=== PATIENT | male | born 1940 ===

== ENCOUNTER 2017-07-18 00:18 | Outpatient (CLI) | payer MEDICARE | END 2017-07-18 23:59 | disposition home or self-care (01) | LOC: DIABETIC 00:18 | PROVIDERS: ATTEND Family Medicine | DX: E11.65 Type 2 diabetes mellitus with hyperglycemia (principal); E11.40 Type 2 diabetes mellitus with diabetic neuropathy, unspecified; I10 Essential (primary) hypertension; E78.5 Hyperlipidemia, unspecified; I67.9 Cerebrovascular disease, unspecified | CPT/HCPCS: G0108 ==

== ENCOUNTER 2017-10-15 04:03 | Outpatient (CLI) | payer MEDICARE | END 2017-10-15 23:59 | disposition home or self-care (01) | LOC: DIABETIC 04:03 | PROVIDERS: ATTEND Family Medicine | DX: E11.40 Type 2 diabetes mellitus with diabetic neuropathy, unspecified (principal); I10 Essential (primary) hypertension; E78.5 Hyperlipidemia, unspecified; E11.65 Type 2 diabetes mellitus with hyperglycemia; I67.9 Cerebrovascular disease, unspecified | CPT/HCPCS: G0108 ==

== ENCOUNTER 2018-01-23 00:50 | Outpatient (CLI) | payer MEDICARE | END 2018-01-23 23:59 | disposition home or self-care (01) | LOC: DIABETIC 00:50 | PROVIDERS: ATTEND Family Medicine | DX: E11.65 Type 2 diabetes mellitus with hyperglycemia (principal); E11.40 Type 2 diabetes mellitus with diabetic neuropathy, unspecified; I67.9 Cerebrovascular disease, unspecified; E78.5 Hyperlipidemia, unspecified; I10 Essential (primary) hypertension; Z79.4 Long term (current) use of insulin; Z79.84 Long term (current) use of oral hypoglycemic drugs | CPT/HCPCS: G0108 ==

== ENCOUNTER 2018-07-22 00:34 | Outpatient (CLI) | payer MEDICARE | END 2018-07-22 23:59 | disposition home or self-care (01) | LOC: DIABETIC 00:34 | PROVIDERS: ATTEND Family Medicine | DX: E11.9 Type 2 diabetes mellitus without complications (principal); Z79.4 Long term (current) use of insulin; Z79.84 Long term (current) use of oral hypoglycemic drugs | CPT/HCPCS: G0108 ==

== ENCOUNTER 2019-02-05 01:15 | Outpatient (CLI) | payer MEDICARE | END 2019-02-05 23:59 | disposition home or self-care (01) | LOC: DIABETIC 01:15 | PROVIDERS: ATTEND Family Medicine | DX: E11.9 Type 2 diabetes mellitus without complications (principal); Z79.4 Long term (current) use of insulin; Z79.84 Long term (current) use of oral hypoglycemic drugs; Z79.899 Other long term (current) drug therapy | CPT/HCPCS: G0108 ==